=== PATIENT | female | born 1985 | race Caucasian/White ===

== ENCOUNTER 2018-12-21 22:26 | Observation (INO) ==
--- NOTE | 2018-12-22 00:14 | PROVIDER DOCUMENTATION ---
HPI-General Adult - General Chief Complaint: Near Syncope Stated Complaint: Hypertension Time Seen by Provider: 12/21/18 23:29 Source: patient Allergies/Adverse Reactions: Patient Allergies Allergy/AdvReac Type Severity Reaction Status Date / Time No Known Allergies Allergy Verified 08/06/18 05:39 Home Medications: Home Medication List Medication Instructions Recorded Confirmed Last Taken Type Cetirizine [Zyrtec] 10 mg PO DAILY 08/06/18 12/21/18 08/05/18 20:00 History Fluticasone 50 Mcg Nasal [place] 1 spray INTRANASAL DAILY 08/06/18 12/21/18 08/05/18 08:00 History [Flonase] Valsartan/Hydrochlorothiazide 1 ea PO DAILY 08/06/18 12/21/18 08/05/18 20:00 History [Valsartan-Hctz 160-25 mg Tab] - History of Present Illness -Gen Adult Nature of Presenting Problems: Patient is a 33 year old white female with history of HTN,morbid obesity,recent sinusitis which is being treated with Levaquin,and pericarditis who presents by EMS complaining of near syncopal episide and sob while sitting in her kitchen tonight. Denies chest pain . Currently asymptomatic. Review of Systems - Adult - REVIEW OF SYSTEMS - ADULT Constitutional: denies: chills, fever Eyes: denies: blurred vision Ears, Nose, Mouth & Throat: reports: no symptoms reported Cardiovascular: reports: see HPI, syncope Respiratory: reports: shortness of breath Gastrointestinal: denies: abdominal pain, nausea, vomiting Genitourinary: reports: no symptoms reported Musculoskeletal: reports: no symptoms reported Integumentary: reports: no symptoms reported Neurological: reports: headache/migraines Psychiatric: reports: no symptoms reported Endocrine: reports: no symptoms reported Hematologic/Lymphatic: reports: no symptoms reported Allergic/Immunologic: reports: no symptoms reported All Other Systems: Reviewed and Negative Past History - Adult - PAST MEDICAL HISTORY-ADULT Review of Records: reports: Old Records Reviewed, Nursing Assessment Review, Medications Reviewed, Social history reviewed & non-contributory. Major Childhood Illnesses: reports: denies history Cardiovascular: reports: HTN Respiratory: reports: denies history Gastrointestinal: reports: denies history Obstetrical/Gynecological: reports: denies history Genitourinary: reports: denies history Musculoskeletal: reports: denies history Neurological: reports: denies history Psychiatric: reports: denies history Endocrine/Immune: reports: thyroid disorder Other Conditions: reports: denies history - PRIOR SURGERIES/PROCEDURES Surgical/Procedure History: reports: orthopedic (extremity) - PRIOR HOSPITALIZATIONS Prior Hospitalizations: reports: for other non-related - IMMUNIZATION STATUS Childhood Immunizations: See Nurse Assessment Flu Vaccine: See Nurse Assessment - FAMILY HISTORY Family History: reviewed, not pertinent - SOCIAL HISTORY Smoking: denies Substance Use: denies Alcohol Use Frequency: never Living Situation: family Physical Exam-General - PHYSICAL EXAM-ADULT Initial Vital Signs Reviewed: Yes - CONSTITUTIONAL General Appearance: alert, no apparent distress - EYES Eyes: PERRL/EOMI - HEAD, EARS, NOSE, MOUTH & THROAT HENMT: normocephalic/atraumatic, moist mucous membranes Progress - PLAN OF CARE/RESULTS Progress/Plan/Lab Results: Vital Signs - 8 hr 12/21/18 22:26 Temperature 98.3 F Pulse Rate 110 H Respiratory Rate 20 Blood Pressure 123/79 O2 Sat by Pulse Oximetry 94 L Orders Category Date Time Status Cardiac Monitoring DIRECTED Care 12/21/18 23:29 Active Orthostatic Vital Signs NOW Care 12/21/18 23:[address] HEAD W/O CONTRAST [CT] Stat Exams 12/21/18 23:52 Ordered CBC WITH ELECTRONIC DIFF [HEME] Stat Lab 12/21/18 23:34 Ordered CMP [COMPREHENSIVE METABOLIC PANEL] [CHEM] Stat Lab 12/21/18 23:34 Uncollected HCG [ TEST-SERUM] [PREG] Stat Lab 12/21/18 23:34 Uncollected EKG [EKG] Stat Ther 12/21/18 23:30 Ordered Result Diagrams: 12/21/18 01:28 12/22/18 01:28 - EKG 1 Time of EKG reading by physician:: 03:58 EKG Read and Signed by:: Junior Vallejo Rate: 96 Rhythm: NSR [place]: normal QRS: LVH Comments: No STEMI - CT/MRI 1 CT Study: Thorax CT Results: no PE, splenomegaly - CONSULTS/PCP/HOSPITALIST Notification #1 *Consult/PCP/Hospitalist*: Dr. Hugo, hospitalist Time Discussed: 05:15 Consult Disposition: Admit Departure - Departure Date of Disposition Decision: 12/22/18 Time of Disposition Decision: 05:20 DIAGNOSIS: Near syncope, Prolonged QT interval Disposition: ADMITTED INPATIENT 09 Certified Medical Emergency: Emergent Condition: Stable Referrals and Follow-Ups: Lina Daniel CRNP [Primary Care Provider] - - Critical Care Note This patient required my direct & personal management of CC.: No Attestation - Physician/ YANELI Attestation Patient care was provided by Advanced Practice Provider:: No The physician spent face to face time with patient:: Yes Advanced Practice Provider documentation review:: Supervising physician onsite and consulted in the evaluation and care of this patient. The physician did have a face to face encounter with the patient.
[2018-12-22 01:41] LABS: BASO# 0.11 X1000 (0.0-0.2); BASO% 2.1 % (0.0-0.8); EOS# 0.15 X1000 (0.0-0.7); EOS% 2.9 % (0.0-10.0); HEMOGLOBIN 12.4 g/dL (12.0-16.0); IMM GRAN# 0.03 X1000 (0.0-0.04); IMM GRAN% 0.6 % (0.0-0.5); LYMPH# 2.48 X1000 (1.2-3.4); LYMPH% 48.2 % (20.5-51.1); MCH 23.8 PG (27-31); MCHC 32.6 g/dL (33-37); MCV 72.9 FL (81-99); MONO# 0.41 X1000 (0.11-0.59); MPV 9.8 FL (7.4-10.4); NEUT# 1.97 X1000 (1.4-6.5); NEUT% 38.2 % (42.2-75.2); PLT 176 X1000 (130-400); RBC 5.21 XMIL (4.2-5.4); RDW 15.1 % (11.5-14.5); WBC 5.15 X1000 (4.8-10.8)
[2018-12-22 02:09] LABS: ALBUMIN 3.9 g/dL (3.5-5.0); ALKALINE PHOSPHATASE 84 U/L (32-104); BUN 15 mg/dL (8-22); CALCIUM 8.7 mg/dL (8.8-10.2); CREATININE 0.8 mg/dL (0.5-0.9); ESTIMATED GFR > 60; GLUCOSE 141 mg/dL (70-104); GOT 53 U/L (10-30); GPT 56 U/L (10-36); TCO2 24 mmol/L (25-35); TOTAL PROTEIN 7.6 g/dL (6.3-8.3)
[2018-12-22 02:39] LABS: CHLORIDE 99 mmol/L (98-107); SODIUM 136 mmol/L (136-145)
[2018-12-22 02:45] LABS: AGAP 13; COSMO 275
--- NOTE | 2018-12-22 05:08 | EKG Report ---
Test Performed on : 12/22/2018 03:57:48 AM Test Reason : pain Blood Pressure : / mmHG Vent. Rate : 096 BPM Atrial Rate : 096 BPM P-R Int : 184 ms QRS Dur : 098 ms QT Int : 396 ms P-R-T Axes : 057 -05 143 degrees QTc Int : 500 ms Normal sinus rhythm. Possible Left atrial enlargement Left ventricular hypertrophy with repolarization abnormality Prolonged QT Abnormal ECG When compared with ECG of 25-FEB-2015 08:52, T wave inversion more evident in Lateral leads Unconfirmed Result
--- NOTE | 2018-12-22 07:48 | Diag Imaging Result Doc PS360 ---
EXAM: CT HEAD W/O CONTRAST 12/21/2018 HISTORY: near syncope TECHNIQUE: This exam was performed using automated exposure control, adjustment of mA or kV according to patient size, and/or use of iterative reconstruction technique. COMMENT: There is no evidence of mass effect, bleed, or abnormal extra-axial fluid collection. The calvarium is intact. IMPRESSION: Normal CT of the head. Electronically signed by Kishore Hi 12/22/2018 7:45 AM
--- NOTE | 2018-12-22 08:13 | Diag Imaging Result Doc PS360 ---
EXAM: CT ANGIOGRM PULMONARY ARTERIES 12/22/2018 HISTORY: near syncope TECHNIQUE: This exam was performed using automated exposure control, adjustment of mA or kV according to patient size, and/or use of iterative reconstruction technique. COMMENT: 3-D MIPS were performed. The spleen is enlarged measuring over 15.5 cm in AP dimension. The pulmonary arteries are not optimally opacified but there are no apparent filling defects. The aorta is normal in caliber without evidence of dissection. There are some prominent mediastinal nodes, aorticopulmonary window nodes are present which exceed 18 mm in long axis and there is apparent adenopathy in the right hilum and subcarina. There are no previous thoracic studies available for comparison. The axillary are not entirely included on the study. There is some fatty replaced nodes in both axillary regions. There are no abnormal fluid collections. There is no evidence of acute pulmonary parenchymal disease. There are some spondylotic changes in the thoracic spine. No acute bony abnormalities are present. IMPRESSION: No evidence of pulmonary emboli. Nonspecific mediastinal adenopathy. Splenomegaly. Electronically signed by Kishore Hi 12/22/2018 8:11 AM
--- NOTE | 2018-12-22 08:49 | EKG Report ---
Test Performed on : 12/22/2018 08:23:31 AM Test Reason : ADMIT TO FLOOR Blood Pressure : / mmHG Vent. Rate : 097 BPM Atrial Rate : 097 BPM P-R Int : 184 ms QRS Dur : 096 ms QT Int : 376 ms P-R-T Axes : 065 -15 130 degrees QTc Int : 477 ms Normal sinus rhythm. Possible Left atrial enlargement Left ventricular hypertrophy T wave abnormality, consider lateral ischemia Prolonged QT Abnormal ECG When compared with ECG of 22-DEC-2018 03:57, (Unconfirmed) No significant change was found Unconfirmed Result
--- NOTE | 2018-12-22 14:01 | HISTORY AND PHYSICAL ---
CHIEF COMPLAINT: "I think I may have passed out." HISTORY OF PRESENT ILLNESS: This is a 33-year-old female who presented to the emergency room feeling that she might have passed out. She said she was sitting at the table and she felt like all blood rushed to her head. She remembers leaning her head back. The sister said that she may have passed out. This is unclear. They do deny any seizure activity, any incontinence of bowel or bladder. She was able to talk to the sister after the event. She started Levaquin recently for sinusitis and she has also had pericarditis. She has had no episodes since. She denies any prior episodes similar to this. She has had no dizziness. PAST MEDICAL HISTORY: Hypertension. PAST SURGICAL HISTORY: Denies. SOCIAL HISTORY: She denies alcohol, tobacco, or illicit drug use. ALLERGIES: Levaquin which causes dizziness. HOME MEDICATIONS: Zyrtec, valsartan/hydrochlorothiazide 160/12.5, and Flonase. REVIEW OF SYSTEMS: Review of systems is discussed with patient with pertinent positives as stated in the HPI. She denied any chest pain, palpitations, shortness of breath, cough, fever, chills, any nausea, vomiting, diarrhea, constipation, any black or bloody vomitus or stools, any hematuria, dysuria, frequency, urgency. PHYSICAL EXAMINATION: GENERAL: This is a 33-year-old female who is sitting on the bed, in no distress. VITAL SIGNS: Blood pressure is 126/70, with a heart rate of 90, respirations are 14, temperature is 98.4 degrees, with room air saturation of 99%. EYES: Pupils equal, round, react to light. EOMs are intact. Sclerae anicteric. HENT: Head is normocephalic, atraumatic. Mucous membranes are moist. NECK: Supple, with trachea midline. CARDIOVASCULAR: Regular rate and rhythm. S1 and S2 are appreciated. No murmurs. She has no lower extremity edema. Calves are nontender bilateral. PULMONARY: Breath sounds are clear. No increased work of breathing noted. GASTROINTESTINAL: Abdomen is soft, nontender, nondistended with bowel sounds in all 4 quadrants. GENITOURINARY: She has no CVA nor suprapubic tenderness. NEUROLOGIC: She is alert and oriented x3. SKIN: Warm and dry. LABS: WBC is 5.1, with hemoglobin 12.4, hematocrit 38, and platelets of 176,000. D-dimer is 1.28. Sodium 136, potassium 4, BUN 15, creatinine 0.8, with a glucose of 141. Urine is negative. CT of the head revealed normal CT of the head. Pulmonary arteriogram revealed no evidence of pulmonary embolism, splenomegaly, nonspecific mediastinal adenopathy. EKG at 11:30 revealed normal sinus rhythm at a rate of 96, with a QTc of 500. Repeat EKG at 7 a.m. revealed normal sinus rhythm at a rate of 96 with a QTc of 477. ASSESSMENT AND PLAN: 1. Near-syncope. The patient will be admitted to the hospital. She will be placed on telemetry. We will have neurological checks. We will check orthostatic vital signs every 12 hours. 2. Elevated D-dimer. CTA pulmonary was negative for pulmonary embolism. We will obtain a bilateral lower extremity Doppler. 3. Hypertension. We will identify her home medications and continue. 4. For deep venous thrombosis prophylaxis, we will use sequential compression devices and for gastrointestinal prophylaxis, we will use Prilosec. 5. Further treatments pending hospital course. The plan has been discussed with Dr. Hugo. Dictated by KORY Landrum for Tobias Hugo MD cc: KORY Landrum MD
--- NOTE | 2018-12-22 15:28 | HISTORY AND PHYSICAL ---
ADDENDUM: Patient was seen and examined by myself. Full note dictated and discussed with nurse practitioner. Patient has recently visited a walk-in clinic, was placed on Levaquin. Came to the ER after a syncopal episode. She was noted to have a prolonged QT of 0.5. Currently, it is improved at 0.38, I believe. She has had no further syncopal episodes during the hospital stay so far. We will continue to follow. Discussed with her the importance of hydration as well. cc: Tobias Hugo MD
--- NOTE | 2018-12-22 16:17 | Extremity Venous Study ---
EXAM: Venous U/S Bilateral Legs 12/22/2018 HISTORY: d d-dimer TECHNIQUE: Compression venous ultrasound of the lower extremities with color Doppler flow COMMENT: The deep veins of both lower extremities are compressible and there is normal color Doppler flow. There is no evidence of superficial venous thrombosis. There are no abnormal fluid collections. IMPRESSION: No evidence of deep venous thrombosis. Electronically signed by Kishore Hi 12/22/2018 4:15 PM
[2018-12-23] MEDS ORDERED: MOTRIN PO ONE (03:14)
[2018-12-23 06:48] LABS: HEMATOCRIT 36.5 % (37.0-47.0); HEMOGLOBIN 11.5 g/dL (12.0-16.0); MCH 23.5 PG (27-31); MCHC 31.5 g/dL (33-37); MCV 74.5 FL (81-99); MPV 9.7 FL (7.4-10.4); RBC 4.9 XMIL (4.2-5.4); RDW 15.2 % (11.5-14.5); WBC 4.33 X1000 (4.8-10.8)
[2018-12-23 06:59] LABS: AGAP 9; BUN 17 mg/dL (8-22); CALCIUM 8.9 mg/dL (8.8-10.2); CHLORIDE 100 mmol/L (98-107); COSMO 278; CREATININE 0.8 mg/dL (0.5-0.9); ESTIMATED GFR > 60; GLUCOSE 151 mg/dL (70-104); POTASSIUM 3.5 mmol/L (3.5-5.1); SODIUM 137 mmol/L (136-145); TCO2 28 mmol/L (25-35)
[2018-12-23] MEDS ORDERED: PRILOSEC PO SCH (07:00)
--- NOTE | 2018-12-23 08:15 | EKG Report ---
Test Performed on : 12/23/2018 08:15:25 AM Test Reason : prolonged qt Blood Pressure : / mmHG Vent. Rate : 074 BPM Atrial Rate : 074 BPM P-R Int : 230 ms QRS Dur : 100 ms QT Int : 428 ms P-R-T Axes : 064 -12 138 degrees QTc Int : 475 ms Sinus rhythm. with sinus arrhythmia. with 1st degree AV block. Left ventricular hypertrophy with repolarization abnormality Abnormal ECG When compared with ECG of 22-DEC-2018 08:23, (Unconfirmed) NC interval has increased Unconfirmed Result
[2018-12-23] MEDS ORDERED: ZYRTEC PO SCH (09:00)
[2018-12-23] MEDS ORDERED: DIOVAN PO SCH (09:00)
[2018-12-23] MEDS ORDERED: HYDROCHLOROTHIAZIDE PO SCH (09:00)
[2018-12-23 16:04] VITALS: BP 168/70
--- NOTE | 2018-12-23 17:41 | CARDIOLOGY CONSULTATION ---
DATE: 12/23/2018 CHIEF COMPLAINT: Possible syncope. HISTORY OF PRESENT ILLNESS: Ms. Jones is a 33-year-old white female with a history of hypertension who has not been feeling well for close to 2 to 3 weeks. She has been dealing with some upper respiratory symptoms and apparently got some antibiotics given to her either Sunday or Sunday last week but did not start taking them until . She had periodic episodes of lightheadedness, dizziness, diaphoresis. Apparently Sunday she was sitting at the dinner table, began feeling very dizzy, and felt like she was going to pass out. She said her head went back but if she is was out she was only out for a few seconds. She came to, she got quite nauseous, and vomited. She presented for further evaluation. She has not had any more complaints such as this here. She has had no chest pain. She denies any palpitations. PAST MEDICAL HISTORY: 1. Hypertension. 2. Morbid obesity. SOCIAL HISTORY: No alcohol, tobacco, or illicit drugs. FAMILY HISTORY: Significant for hypertension. REVIEW OF SYSTEMS: A 10 system review of systems is negative except for those things mentioned in the HPI. PHYSICAL EXAMINATION: Vital signs: The patient is afebrile. Heart rate of 90, blood pressure 168/70. She was not orthostatic on this presentation. General: She is morbidly obese. No acute distress. HEENT: Oropharynx is moist. Normal dentition. Eye examination shows pink conjunctivae, white sclerae. Neck: Examination shows no obvious thyromegaly or thyroid tenderness. Cardiovascular: She sounds to be in a regular rate and rhythm. No murmurs. She has no lower extremity edema. No carotid bruits. Chest: Clear. Distant. No increased work of breathing. Abdomen: Soft, nontender, nondistended. She has no obvious organomegaly. Skin: Warm and dry throughout. No obvious rashes. Neurological: She is moving all extremities well. No lateralizing deficits. PERTINENT DATA: Her CT of her head was unremarkable for any acute findings. She had a pulmonary arteriogram demonstrating no evidence of pulmonary emboli. She has nonspecific mediastinal adenopathy as well as splenomegaly noted on the study. Her EKG data demonstrates the initial EKG shows sinus rhythm, QTc of 500. She has a suggestion of LVH. Her next EKG on the at 8:23 shows sinus rhythm, QTc of 477. Again, some evidence for LVH on the study. Her final EKG reviewed by me on the at 8:15 shows sinus rhythm, QTc of 475, suggestion of LVH. We have an EKG on her from August 2013 that shows sinus rhythm, QTc of 442. She does not have LVH on that study per our records. Her lab data shows a white count of 4.3, hematocrit of 36, platelet count of 152,000. Sodium 137, potassium 3.5, BUN 17, creatinine 0.8. Cardiac enzymes were negative yesterday. Serum test was unremarkable. ASSESSMENT: Ms. Jones is a 33-year-old female who presented with a suggestion of a long QT, recent administration of Levaquin. PLAN: She has had no significant arrhythmias identified here during this hospitalization. From my standpoint, we can likely discharge her home and plan for an outpatient follow up in our office. We will make sure she has a heart monitor and we will do a 2 week home monitor for evaluation of possible arrhythmias. I have recommended that she avoid Levaquin in the future. We will also check an outpatient echo. cc: Valentín Aquino MD
--- NOTE | 2018-12-24 14:10 | DISCHARGE SUMMARY ---
ADMISSION DATE: 12/22/2018 DISCHARGE DATE: 12/23/2018 ADMISSION DIAGNOSES: 1. Near syncope. 2. Elevated D-dimer. 3. Hypertension. DISCHARGE DIAGNOSES: 1. Near syncope with prolonged QTc. 2. Elevated D-dimer. Negative for PE and negative for DVT. 3. Hypertension stable. CONSULTATIONS: Cardiology with recommendations for Holter monitor and follow up with Cardiology as outpatient. SURGERIES AND PROCEDURES: None. HOSPITAL COURSE: Ms. Lina Jones is a 33-year-old female with a medical history of hypertension. She came in thinking that she had passed out. Apparently, she was sitting at the table and felt like all the blood rushed to her head. She remembers leaning her head back and her sister mentioned that she may have passed out but it was still unclear. There were no signs of seizure activity or loss of bowel or bladder. She was able to talk to her sister after the event. Apparently had been started on Levaquin recently for sinusitis and was told she had pericarditis as well but no episodes since then. When they got an EKG, she had a prolonged QTc of 500, that could have likely been caused by the Levaquin. There are no medications that I could see that it would interact and add to the prolonged QTc but she was monitored here with no other recurrences. She was seen by Cardiology who also recommends that she has a Holter monitor. Head CT was negative. No pulmonary emboli. No DVT. DISCHARGE VITAL SIGNS: Temperature 97.6 degrees, heart rate 90, respiratory rate 18, blood pressure 168/70, O2 saturation 100% on room air. DISCHARGE LABORATORY DATA: White blood cells 4000, hemoglobin 11, hematocrit 36, platelet count 152,000, D-dimer was 1.28. Sodium 137, potassium 3.5, BUN 17, creatinine 0.8, glucose 151, calcium 8.9. PERTINENT IMAGING: Head CT negative. Pulmonary arteriogram: No pulmonary emboli. It did show some splenomegaly. Ultrasound lower extremities negative for DVT. EKG: There were 3 of them. One normal sinus rhythm, rate 96, QTc 500. Repeat on the th normal sinus rhythm, rate 97, QTc 477. Repeat on the th normal sinus rhythm with a first-degree AV block, rate is 74, QTc is 475. DISCHARGE MEDICATIONS: 1. Fluticasone spray intranasally. 2. Valsartan/hydrochlorothiazide 1 tab p.o. daily. 3. Zyrtec 10 mg p.o. daily. DISCHARGE DIET: Heart healthy. DISCHARGE ACTIVITY: As tolerated. DISCHARGE FOLLOWUP: Dr. Aquino, Cardiology. DISCHARGE INSTRUCTIONS: Holter monitor as an outpatient. Follow up with Cardiology. If her condition changes contact physician and/or return to the emergency department. Changes may include but not limited to, shortness of breath, increased fatigue, excessive bleeding, unexplained weight loss or gain, unimaginable pain signs or symptoms of infection. DISCHARGE DISPOSITION: Home. Dictated by KORY Ellis for Tobias Hugo MD cc: KORY Ellis MD
== END 2018-12-23 18:41 | disposition home or self-care (01) ==
LOC: P.MEDSURG 22:26 → P.ED 22:26
PROVIDERS: ATTEND Family Medicine
CPT/HCPCS: 70450; 71275; 80048; 80053; 82948; 83735; 84484; 84703; 85025; 85027; 85379; 93005; 93970; 94761; A9270; Q9967; XXXXX